=== PATIENT | male | born 1970 | race American Indian/Alaskan Native ===

== ENCOUNTER 2018-12-28 11:47 | Emergency (ER) | payer BC, OTHER ==
[2018-12-28 12:41] LABS: Bilirubin,Urine NEG (Negative); Blood,Urine SM (Negative); Color,Urine Yellow (Yellow); Mucus,Urine FEW /HPF; Protein,Urine <15 mg/dL mg/dL (Negative); WBC,Urine < 1.0 /HPF (0.0-6.0)
--- NOTE | 2018-12-28 13:22 | Emergency Department Report ---
ED Male HPI - General Chief complaint: Urogenital-Male Stated complaint: BLOOD IN URINE Time Seen by Provider: 12/28/18 12:22 Source: patient Mode of arrival: Ambulatory Limitations: No Limitations - History of Present Illness Initial comments: Mr. Ramos is a very pleasant healthy 48-year-old male with history of gastritis and colon polyps who presents with hematuria and difficulty with urination. 4 AM this morning he had a very difficult time starting his urine stream. When he was eventually able to urinate, he noticed blood in urine. He denies any abdominal pain. He denies dysuria. He denies penile discharge. No previous history of prostate issues. He currently is not followed by a primary physician. Over the last month he has had right flank pain. Denies any fever. Denies weight loss. Denies generalized malaise. He has has 2 colonoscopies within the last 5 years. He's had a history of polypectomy. Currently does not take any medication. Has not had a full physical in several years. He does smoke tobacco. He drinks 5-8 beers or shots daily. He works for [employer]. Complaint: other (hematuria, difficulty with urination) -: Gradual Severity: mild Consistency: intermittent Worsens with: urination blood in urine - Related Data Previous Rx's Medication Instructions Recorded Last Taken Type Cephalexin [Keflex] 500 mg PO QID 10 Days #40 capsule 12/28/18 Unknown Rx Tamsulosin HCl [Flomax] 0.4 mg PO DAILY 7 Days #7 12/28/18 Unknown Rx cap.er.24h Allergies Allergy/AdvReac Type Severity Reaction Status Date / Time No Known Allergies Allergy Unverified 10/20/13 06:24 ED Review of Systems ROS: Stated complaint: BLOOD IN URINE Other details as noted in HPI Comment: All other systems reviewed and negative Constitutional: denies: fever, malaise Respiratory: denies: cough Cardiovascular: denies: chest pain ED Past Medical Hx - Past Medical History Previous Medical History?: Yes Additional medical history: GASTRITIS - Surgical History Past Surgical History?: No - Social History Smoking Status: Current Every Day Smoker Substance Use Type: Marijuana - Medications Home Medications: Home Medications Medication Instructions Recorded Confirmed Last Taken Type Cephalexin [Keflex] 500 mg PO QID 10 Days #40 capsule 12/28/18 Unknown Rx Tamsulosin HCl [Flomax] 0.4 mg PO DAILY 7 Days #7 12/28/18 Unknown Rx cap.er.24h ED Physical Exam - General Limitations: No Limitations General appearance: alert, in no apparent distress - Head Head exam: Present: atraumatic, normocephalic - Eye Eye exam: Present: normal appearance - ENT ENT exam: Present: mucous membranes moist - Neck Neck exam: Present: normal inspection. Absent: tenderness, meningismus - Respiratory Respiratory exam: Present: normal lung sounds bilaterally. Absent: respiratory distress, wheezes, rales, rhonchi - Cardiovascular Cardiovascular Exam: Present: regular rate, normal rhythm, normal heart sounds. Absent: systolic murmur, diastolic murmur, rubs, gallop - GI/Abdominal GI/Abdominal exam: Present: soft, normal bowel sounds. Absent: distended, tenderness, guarding, rebound - Rectal Rectal exam: Present: deferred - Extremities Exam Extremities exam: Present: normal inspection - Back Exam Back exam: Present: normal inspection, full ROM. Absent: tenderness, CVA tenderness (R), CVA tenderness (L) - Neurological Exam Neurological exam: Present: alert, oriented X3 - Psychiatric Psychiatric exam: Present: normal affect, normal mood - Skin Skin exam: Present: warm, dry, intact, normal color. Absent: rash ED Course Vital Signs 12/28/18 12/28/18 12/28/18 11:53 12:16 12:17 Temperature 98.5 F 98.4 F Pulse Rate 79 63 Respiratory 18 18 18 Rate Blood Pressure 143/84 Blood Pressure 134/82 [Right] O2 Sat by Pulse 97 95 95 Oximetry ED Medical Decision Making - Medical Decision Making 1. Difficulty with urination with resultant hematuria suspect benign prostate hypertrophy, mild hematuria seen on urinalysis without associated UTI. Will preemptively prescribed cephalexin antibiotics, also prescribed Flomax. Strongly encouraged to follow up with urologist to whom he is referred. Also strongly recommended full physical exam by outpatient medicine physician to whom he is referred. 2. One month of right flank pain likely also, however I did suggest outpatient medicine evaluation. Critical care attestation.: If time is entered above; I have spent that time in minutes in the direct care of this critically ill patient, excluding procedure time. ED Disposition Clinical Impression: Difficulty in urination, Hematuria Disposition: TO HOME OR SELFCARE Is pt being admited?: No Does the pt Need Aspirin: No Condition: Stable Instructions: Acute Hematuria (ED), Benign Prostatic Hypertrophy (ED) Prescriptions: Cephalexin [Keflex] 500 mg PO QID 10 Days #40 capsule Tamsulosin HCl [Flomax] 0.4 mg PO DAILY 7 Days #7 cap.er.24h Referrals: ANGEL HUDDLESTON MD [Staff Physician] - 3-5 Days CLAY MARCUM MD [Staff Physician] - 3-5 Days
[2018-12-30 12:01] VITALS: BP 128/84
== END 2018-12-28 13:38 | disposition home or self-care (01) ==
LOC: ED 11:47
DX: R31.9 Hematuria, unspecified (principal); R30.0 Dysuria; F17.200 Nicotine dependence, unspecified, uncomplicated
CPT/HCPCS: 81001

== ENCOUNTER 2019-01-15 10:10 | Emergency (ER) | payer BC, OTHER ==
[2019-01-15] MEDS ORDERED: NACL 0.9% 1000 ML 1,000 ML IV ONE (10:55)
[2019-01-15] MEDS ORDERED: BENTYL IM ONE (10:55)
[2019-01-15] MEDS ORDERED: TORADOL IV ONE (10:55)
[2019-01-15] MEDS ORDERED: PEPCID IV ONE (10:55)
[2019-01-15] MEDS ORDERED: ZOFRAN IV ONE (10:56)
[2019-01-15 11:20] LABS: Basophils # (Auto) 0.1 K/mm3 (0.0-0.1); Basophils % (Auto) 0.6 % (0.0-1.8); Eosinophils % (Auto) 0.4 % (0.0-4.3); Hematocrit 54.2 % (35.5-45.6); Hemoglobin 18.3 gm/dl (11.8-15.2); Lymphocytes # (Auto) 1.7 K/mm3 (1.2-5.4); Lymphocytes % (Auto) 17.4 % (13.4-35.0); Mean Corpuscular HGB Conc 34 % (32-34); Mean Corpuscular Volume 92 fl (84-94); Monocytes # (Auto) 0.9 K/mm3 (0.0-0.8); Monocytes % (Auto) 9.3 % (0.0-7.3); Platelet Count 190 K/mm3 (140-440); Red Blood Count 5.87 M/mm3 (3.65-5.03); Red Cell Distribution Width 14.2 % (13.2-15.2)
[2019-01-15 11:42] LABS: Alanine Aminotransferase 39 units/L (7-56); Albumin 4.5 g/dL (3.9-5); BUN/Creatinine Ratio 13; Blood Urea Nitrogen 13 mg/dL (9-20); Calcium 9.3 mg/dL (8.4-10.2); Hemolysis Index 15
[2019-01-15] MEDS ORDERED: MORPHINE IV ONE (11:45)
[2019-01-15] MEDS ORDERED: REGLAN IV ONE (11:45)
--- NOTE | 2019-01-15 12:04 | Emergency Department Report ---
ED Abdominal Pain HPI - General Chief Complaint: Abdominal Pain Stated Complaint: STOMACH PAIN Time Seen by Provider: 01/15/19 10:47 Source: patient Mode of arrival: Ambulatory Limitations: No Limitations - History of Present Illness Initial Comments: Patient is a 48-year-old [place] male who is presenting with epigastric pain nausea vomiting. 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 Patient states his pain is 8 out of 10 in severity and is a burning sensation in epigastrium. Patient is a poor historian secondary to active vomiting and writhing in bed during the history and physical. Severity scale (0 -10): 10 Quality: burning Associated Symptoms: denies: fever - Related Data Previous Rx's Medication Instructions Recorded Last Taken Type Cephalexin [Keflex] 500 mg PO QID 10 Days #40 capsule 12/28/18 Unknown Rx Tamsulosin HCl [Flomax] 0.4 mg PO DAILY 7 Days #7 12/28/18 Unknown Rx cap.er.24h Dicyclomine [Bentyl] 20 mg PO QID #12 tablet 01/15/19 Unknown Rx Ondansetron [Zofran Odt] 4 mg PO Q8HR PRN #10 tab.rapdis 01/15/19 Unknown Rx Sucralfate [Carafate] 1 gm PO Q6HR 15 Days udc 01/15/19 Unknown Rx Allergies Allergy/AdvReac Type Severity Reaction Status Date / Time No Known Allergies Allergy Unverified 10/20/13 06:24 ED Review of Systems ROS: Stated complaint: STOMACH PAIN Other details as noted in HPI Comment: All other systems reviewed and negative ED Past Medical Hx - Past Medical History Additional medical history: GASTRITIS, ulcer - Surgical History Past Surgical History?: No - Social History Smoking Status: Former Smoker Substance Use Type: None, Marijuana - Medications Home Medications: Home Medications Medication Instructions Recorded Confirmed Last Taken Type Cephalexin [Keflex] 500 mg PO QID 10 Days #40 capsule 12/28/18 Unknown Rx Tamsulosin HCl [Flomax] 0.4 mg PO DAILY 7 Days #7 12/28/18 Unknown Rx cap.er.24h Dicyclomine [Bentyl] 20 mg PO QID #12 tablet 01/15/19 Unknown Rx Ondansetron [Zofran Odt] 4 mg PO Q8HR PRN #10 tab.rapdis 01/15/19 Unknown Rx Sucralfate [Carafate] 1 gm PO Q6HR 15 Days udc 01/15/19 Unknown Rx ED Physical Exam - General Limitations: No Limitations General appearance: alert, anxious, in distress - Head Head exam: Present: atraumatic, normocephalic - Eye Eye exam: Present: normal appearance, PERRL, EOMI - ENT ENT exam: Present: mucous membranes moist - Neck Neck exam: Present: normal inspection - Respiratory Respiratory exam: Present: normal lung sounds bilaterally. Absent: respiratory distress, wheezes, rales, rhonchi - Cardiovascular Cardiovascular Exam: Present: regular rate, normal rhythm. Absent: systolic murmur, diastolic murmur, rubs, gallop - GI/Abdominal GI/Abdominal exam: Present: soft, tenderness (epigastric), normal bowel sounds. Absent: distended, guarding, rebound, rigid - Rectal Rectal exam: Present: deferred - Extremities Exam Extremities exam: Present: normal inspection - Back Exam Back exam: Present: normal inspection - Neurological Exam Neurological exam: Present: alert, oriented X3 - Psychiatric Psychiatric exam: Present: normal affect, normal mood - Skin Skin exam: Present: warm, dry, intact, normal color. Absent: rash ED Course Vital Signs 01/15/19 10:33 Temperature 98.7 F Pulse Rate 87 Respiratory 22 Rate Blood Pressure 185/115 O2 Sat by Pulse 98 Oximetry - Reevaluation(s) Reevaluation #1: 01/15/19 13:17 Patient received several medications for reduction of stomach acid and nausea. Patient states the only thing that helps is morphine. Patient received 1 dose of morphine but was told he would not have any additional doses in emergency department. Patient's symptoms seemed to calm down and he was resting comfortably in the room however when asked at 1310 A he was feeling better he started saying that he still is having a lot of burning in his abdomen. A GI cocktail's been ordered. ED Medical Decision Making - Lab Data Result diagrams: 01/15/19 11:10 01/15/19 11:10 Lab Results 01/15/19 01/15/19 Range/Units 11:10 11:10 WBC 9.5 (4.5-11.0) K/mm3 RBC 5.87 H (3.65-5.03) M/mm3 Hgb 18.3 H (11.8-15.2) gm/dl Hct 54.2 H (35.5-45.6) % MCV 92 (84-94) fl MCH 31 (28-32) pg MCHC 34 (32-34) % RDW 14.2 (13.2-15.2) % Plt Count 190 (140-440) K/mm3 Lymph % (Auto) 17.4 (13.4-35.0) % Saline % (Auto) 9.3 H (0.0-7.3) % Eos % (Auto) 0.4 (0.0-4.3) % Baso % (Auto) 0.6 (0.0-1.8) % Lymph # 1.7 (1.2-5.4) K/mm3 Saline # 0.9 H (0.0-0.8) K/mm3 Eos # 0.0 (0.0-0.4) K/mm3 Baso # 0.1 (0.0-0.1) K/mm3 Seg Neutrophils % 72.3 H (40.0-70.0) % Seg Neutrophils # 6.9 (1.8-7.7) K/mm3 Sodium 140 (137-145) mmol/L Potassium 3.7 (3.6-5.0) mmol/L Chloride 100.7 (98-107) mmol/L Carbon Dioxide 22 (22-30) mmol/L Anion Gap 21 mmol/L BUN 13 (9-20) mg/dL Creatinine 1.0 (0.8-1.5) mg/dL Estimated GFR > 60 ml/min BUN/Creatinine Ratio 13 % Glucose 110 H (75-100) mg/dL Calcium 9.3 (8.4-10.2) mg/dL Total Bilirubin 0.60 (0.1-1.2) mg/dL AST 37 (5-40) units/L ALT 39 (7-56) units/L Alkaline Phosphatase 72 (35-129) units/L Total Protein 7.9 (6.3-8.2) g/dL Albumin 4.5 (3.9-5) g/dL Albumin/Globulin Ratio 1.3 % Lipase 38 (13-60) units/L Critical care attestation.: If time is entered above; I have spent that time in minutes in the direct care of this critically ill patient, excluding procedure time. ED Disposition Clinical Impression: Gastroparesis Disposition: DC-01 TO HOME OR SELFCARE Is pt being admited?: No Does the pt Need Aspirin: No Condition: Stable Instructions: Acute Nausea and Vomiting (ED), Gastritis (ED) Referrals: RITA RUBIN MD [Primary Care Provider] - 3-5 Days Time of Disposition: 13:20
[2019-01-15] MEDS ORDERED: LIDOCAINE VISCOUS 2% PO ONE (12:56)
[2019-01-15] MEDS ORDERED: LEVSIN SL SL ONE (12:56)
[2019-01-15] MEDS ORDERED: ALUM-MAG HYDROX-SIMETH 200-200-20MG/5ML PO ONE (12:56)
[2019-01-15] MEDS ORDERED: GEODON IM ONE (13:25)
[2019-01-15] MEDS ORDERED: WATER FOR INJ Sterile (PF) 10 ML ONE (13:38)
[2019-01-15] MEDS ORDERED: CARAFATE PO ONE (14:54)
--- NOTE | 2019-01-15 16:24 | Event Note ---
Date: 01/15/19 48 YO Male with Obesity, Gastritis presents to ED for evaluation of abdominal pain, pain nausea vomiting. Pt seen and evaluated in ED and found to have no acute findings. Pt medically optimized and back to usual states of health. Pt instructed to F/U with his treating engineer. Pt discharged home and instructed to F/U pcp 1wk, and GI at discharge for f/u appointment. - General Limitations: No Limitations General appearance: alert, - Head Head exam: Present: atraumatic, normocephalic - Eye Eye exam: Present: normal appearance, PERRL, EOMI - ENT ENT exam: Present: mucous membranes moist - Neck Neck exam: Present: normal inspection - Respiratory Respiratory exam: Present: normal lung sounds bilaterally. Absent: respiratory distress, wheezes, rales, rhonchi - Cardiovascular Cardiovascular Exam: Present: regular rate, normal rhythm. Absent: systolic murmur, diastolic murmur, rubs, gallop - GI/Abdominal GI/Abdominal exam: Present: soft, NT, ND, normal bowel sounds, No rebound, No guarding. Absent: distended, guarding, rebound, rigid - Rectal Rectal exam: Present: deferred - Extremities Exam Extremities exam: Present: normal inspection - Back Exam Back exam: Present: normal inspection - Neurological Exam Neurological exam: Present: alert, oriented X3 - Psychiatric Psychiatric exam: Present: normal affect, normal mood - Skin Skin exam: Present: warm, dry, intact, normal color. Absent: rash
[2019-01-15 18:45] VITALS: BP 178/102
== END 2019-01-15 18:44 | disposition home or self-care (01) ==
LOC: ED 10:10
DX: K31.84 Gastroparesis (principal); R11.2 Nausea with vomiting, unspecified; Z87.891 Personal history of nicotine dependence
CPT/HCPCS: 36415; 80053; 83690; 85025; 96361; 96372; 96374; 96375; 99283; J0500; J1885; J2270; J2405; J2765; J3486; J7030

== ENCOUNTER 2019-10-01 13:44 | Emergency (ER) | payer BC ==
--- NOTE | 2019-10-01 13:59 | Event Note ---
ED Screening Note Date of service: 10/01/19 Time: 13:55 ED Screening Note: patient with hx of chronic gastrist presents to ED c/o nausea and vomiting. Onset early this morning. BRB streaks mixed with food noticed in emesis. associated epigastric burning. tried peptobismol, aleve and alkerzar. takes protonix but out. ETOh socially. No NSADI abuse. scheduled to see GI next week. This initial assessment/diagnostic orders/clinical plan/treatment(s) is/are subject to change based on patients health status, clinical progression and re- assessment by fellow clinical providers in the ED. Further treatment and workup at subsequent clinical providers discretion. Patient/guardian urged not to elope from the ED as their condition may be serious if not clinically assessed and managed. Initial orders include: labs fluids meds
[2019-10-01] MEDS ORDERED: SODIUM CHLORIDE 0.9% 1000 ML 1,000 ML IV ONE (14:00)
[2019-10-01] MEDS ORDERED: PANTOPRAZOLE 40 MG INJ IV ONE (14:01)
[2019-10-01] MEDS ORDERED: ONDANSETRON 4 MG/2 ML INJ IV ONE (14:01)
[2019-10-01 14:27] LABS: Basophils # (Auto) 0.1 K/mm3 (0.0-0.1); Basophils % (Auto) 0.9 % (0.0-1.8); Eosinophils % (Auto) 0.4 % (0.0-4.3); Hematocrit 53.1 % (35.5-45.6); Hemoglobin 18.2 gm/dl (11.8-15.2); Lymphocytes # (Auto) 1.7 K/mm3 (1.2-5.4); Lymphocytes % (Auto) 20.5 % (13.4-35.0); Mean Corpuscular HGB Conc 34 % (32-34); Mean Corpuscular Volume 90 fl (84-94); Monocytes # (Auto) 0.5 K/mm3 (0.0-0.8); Monocytes % (Auto) 6.5 % (0.0-7.3); Platelet Count 219 K/mm3 (140-440); Red Blood Count 5.89 M/mm3 (3.65-5.03); Red Cell Distribution Width 14.2 % (13.2-15.2)
[2019-10-01 14:54] LABS: Alanine Aminotransferase 32 units/L (7-56); Albumin 4.6 g/dL (3.9-5); BUN/Creatinine Ratio 14; Blood Urea Nitrogen 13 mg/dL (9-20); Calcium 9.4 mg/dL (8.4-10.2); Hemolysis Index 5
== END 2019-10-01 15:38 | disposition left against medical advice (07) ==
LOC: ED 13:44
DX: R11.2 Nausea with vomiting, unspecified (principal); Z53.21 Procedure and treatment not carried out due to patient leaving prior to being seen by health care provider
CPT/HCPCS: 36415; 80053; 83690; 83735; 85025